=== PATIENT | male | born 1955 | race Two or more races ===

== ENCOUNTER 2017-04-20 16:33 | Emergency (ER) | payer SELFPAY ==
[~2017-04-20] VITALS: Ht 167.6 cm; Wt 68.0 kg
--- NOTE | 2017-04-20 16:40 | NUR ---
BIBRA [address] FOR ETOH. PATIENT IS ALERT HOWEVER CONFUSED. APPEARS IN NO APPARENT DISTRESS, RESPIRATION EVEN AND UNLABORED. VSS
--- NOTE | 2017-04-20 17:12 | NUR ---
Patient is resting comfortably in bed with eyes closed. Easily aroused. VSS
[2017-04-20 21:27] VITALS: BP 108/53
--- NOTE | 2017-04-20 21:28 | NUR ---
Patient discharged to home in stable condition. Written and verbal after care instructions given. Patient verbalizes understanding of instruction.
== END 2017-04-20 21:28 | disposition home or self-care (01) ==
LOC: ER 16:34
DX: F10.129 Alcohol abuse with intoxication, unspecified (principal)
CPT/HCPCS: 99283; A4606; Z7610

== ENCOUNTER 2022-11-19 20:46 | Emergency (ER) | payer OTHER ==
[~2022-11-19] VITALS: Ht 172.7 cm; Wt 63.5 kg
--- NOTE | 2022-11-19 20:58 | NUR ---
BIBRA 102 FOR OSYCH EVAL DUE TO AGITATION BY 2 PARAMEDICS.
--- NOTE | 2022-11-19 21:16 | NUR ---
COVID ANTIGEN COLLECTED AND SENT TO LAB
[2022-11-19 22:03] LABS: BASOPHILS # (AUTO) 0.1 K/uL (0.0-0.2); BASOPHILS % (AUTO) 0.6 % (0.0-2.0); EOSINOPHILS % (AUTO) 1.6 % (0.0-6.0); HEMATOCRIT 36 % (39-51); HEMOGLOBIN 12.1 g/dL (13.5-17.5); LYMPHOCYTES # (AUTO) 1.5 K/uL (0.8-4.8); LYMPHOCYTES % (AUTO) 13.8 % (20.0-44.0); MEAN CORPUSCULAR HGB CONC 34 g/dl (31.0-36.0); MEAN CORPUSCULAR VOLUME 98 fL (80-96); MONOCYTES # (AUTO) 0.7 K/uL (0.1-1.30); MONOCYTES % (AUTO) 6.6 % (2.0-12.0); NEUTROPHILS # (AUTO) 8.5 K/uL (1.8-8.9); NEUTROPHILS % (AUTO) 77.4 % (43.0-81.0); PLATELET COUNT (AUTO) 266 K/uL (150-450); RED BLOOD CELL COUNT(AUTO) 3.69 MIL/uL (4.5-6.0)
--- NOTE | 2022-11-19 22:04 | NUR ---
URINE COLLECTED AND SENT TO LABS
[2022-11-19 22:25] LABS: ALANINE AMINOTRANSFERASE 20 U/L (12-78); ALBUMIN 3.3 g/dL (3.4-5.0); ALKALINE PHOSPHATASE 209 U/L (46-116); ASPARTATE AMINOTRANSFERASE 22 U/L (15-37); BILIRUBIN,DIRECT 0.3 mg/dL (0.0-0.2); CALCIUM, SERUM 8.9 mg/dL (8.5-10.1); CARBON DIOXIDE 28 mmol/L (21-32); CHLORIDE 100 mmol/L (98-107); CREATININE 0.9 mg/dL (0.6-1.3); GLUCOSE 112 mg/dL (74-106); POTASSIUM 4.4 mmol/L (3.5-5.1); SODIUM SERUM 138 mmol/L (136-145); TOTAL PROTEIN, SERUM 6.5 g/dL (6.4-8.2); UREA NITROGEN, BLOOD 13 mg/dL (7-18)
[2022-11-19 22:42] LABS: ACETAMINOPHEN < 10 ug/ml (10-30); ALCOHOL, BLOOD < 3 mg/dL (0-0)
--- NOTE | 2022-11-19 23:37 | NUR ---
PAGED ART DIRECTOR CUSTOMER
[2022-11-19 23:51] LABS: BILIRUBIN,URINE NEGATIVE (NEGATIVE); COLOR,URINE YELLOW (YELLOW); LEUKOCYTE ESTERASE ,URINE NEGATIVE (NEGATIVE); NITRITE, URINE NEGATIVE (NEGATIVE); PH,URINE 7.5 (5.0-8.0); PROTEIN,URINE NEGATIVE (NEGATIVE); UGLUCOSE 2+ mg/dL (NEGATIVE)
[2022-11-19 23:57] LABS: BACTERIA,URINE Rare /HPF (None Seen); RBC,URINE 0-2 /HPF (0-2); SQUAMOUS EPITHELIAL CELL,UR Few /HPF (None Seen); WBC,URINE 0-2 /HPF (0-3)
--- NOTE | 2022-11-20 00:45 | NUR ---
SEEN BY ART, BIOFUELS RESEARCH SCIENTIST. ART WAS NOT ABLE TO EVALUATE THE PATIENT AND REQUESED PATIENT TO GET MEDICATED. AWARE.
[2022-11-20] MEDS ORDERED: OLANZAPINE 10 MG VIAL IM ONE ×2 (01:00→01:10)
--- NOTE | 2022-11-20 02:51 | NUR ---
LARGE INCONTINENT URINE NOTED. CHANGED PT'S DIAPER AND LINEN. REPOSITIONED PT. SAFETY MEASURES IN PLACE. PT KEPT CLEAN AND DRY.
--- NOTE | 2022-11-20 07:15 | NUR ---
RECEIVED PT FROM JAZLYN BEAN PT AWAKE CONFUSED AND RESSLESS NOT FALLOW COMMAND
--- NOTE | 2022-11-20 07:45 | NUR ---
KATARZYNA FOR PSCHY EVALUATION
--- NOTE | 2022-11-20 09:11 | NUR ---
PT GOING BACK TO [facility] [id number] [place] [phone]
--- NOTE | 2022-11-20 09:15 | NUR ---
CALLED [facility] FOR TRANSPORT ETA 1000 PER TERRY
[2022-11-20 10:48] VITALS: BP 106/73
--- NOTE | 2022-11-20 10:48 | NUR ---
PT TRANSFER TO [facility] AWAKE AND CONFUSED [facility]ING
== END 2022-11-20 10:54 | disposition home health service (06) ==
LOC: ER 20:48
DX: R45.1 Restlessness and agitation (principal); Z20.822 Contact with and (suspected) exposure to COVID-19
CPT/HCPCS: 99285; 85025; 80048; 80076; 81001; 36415; 87426; 80143; 80320; 80307; 96372; C9803; J3490; G0480